=== PATIENT | female | born 1955 ===

== ENCOUNTER → 2020-12-28 12:35 | Outpatient (CLI) | payer MEDICARE, BC, SELFPAY ==
--- NOTE | 2020-12-28 | DI.RAD.S_ITS ---
PROCEDURE: FL UPPER GI W AIR INDICATIONS: Gastro-esophageal reflux disease without esophagitis COMPARISON: None. FINDINGS: KUB: Preprocedural joiner helper film demonstrates a normal bowel gas pattern. No suspicious abdominal calcifications. Bony structures appear unremarkable. Esophagus: Esophageal mucosa is normal on air-contrast views. On single-contrast views, there is normal esophageal peristalsis. No strictures, extrinsic mass effects, or diverticula. No hiatal hernia. There is normal transit of a calibrated barium tablet through the esophagus. Mild gastroesophageal reflux into the lower esophagus during the exam. Stomach: The stomach is normally distensible, with normal rugal fold thickness. No mucosal masses or ulcers. Pylorus and duodenal bulb appear normal in morphology. Duodenal folds are normal in thickness as well. IMPRESSION: 1. Mild gastroesophageal reflux into the distal esophagus. 2. Otherwise, normal upper GI exam. Dictated by: Jelani Morrison M.D. on 12/28/2020 at 14:36 Approved by: Jelani Morrison M.D. on 12/28/2020 at 14:39
== END ==
PROVIDERS: Referring Provider Surgery; Visit Provider Surgery
DX: K21.9 Gastro-esophageal reflux disease without esophagitis (principal)
CPT/HCPCS: 74246